=== PATIENT | male | born 1975 | race Hispanic/Latino ===

== ENCOUNTER 2022-11-23 16:29 | Emergency (ER) | payer OTHER, SELFPAY ==
--- NOTE | ~2022-11-23 | CT_ITS ---
EXAMINATION: CT brain wo con INDICATION: Headache COMPARISON: None TECHNIQUE: Standard unenhanced head CT. The dose-length product (DLP) was 605.33 mGy-cm. The mA was a djusted according to patient size. Iterative reconstruction technique was employed. FINDINGS: There is no intracranial hemorrhage, acute infarction, or abnormal mass lesion. The ventric les are normal. There is no abnormal mass effect or midline shift. The edward-white matter differentiat ion is normal. The basal cisterns are patent. The orbits are normal. There is mild mucosal thickening of the paranasal sinuses. IMPRESSION: 1. No acute intracranial abnormality. Reviewed, dictated and finalized at location F.
--- NOTE | ~2022-11-23 | CT_ITS ---
EXAMINATION: CT lumbar spine wo con DATE: 11/23/2022 17:53 INDICATION: Low back pain after fall TECHNIQUE: Computed tomography (CT) of the lumbar spine was performed without intravenous contrast. T he dose-length product (DLP) was 322.77 mGy-cm. Iterative reconstruction was used. COMPARISON: None FINDINGS: Bone alignment is normal. There is no fracture. There is mild loss of intervertebral disc s pace height at L4-5. Small degenerative osteophytes project from the anterior endplates of multiple v ertebral bodies. The vertebral body heights are normal. The prevertebral soft tissues are unremarkabl e. There is a 2 mm nonobstructing stone of the left kidney. IMPRESSION: 1. Mild lumbar spondylosis without acute findings. Reviewed, dictated and finalized at location F.
--- NOTE | ~2022-11-23 | CT_ITS ---
EXAMINATION: CT cervical spine wo con DATE: 11/23/2022 17:49 INDICATION: Neck pain TECHNIQUE: Computed tomography (CT) of the cervical spine was performed without intravenous contrast. The dose-length product (DLP) was 370.13 mGy-cm. Automated exposure control and iterative reconstruc tion technique were employed. COMPARISON: None FINDINGS: Bone alignment is normal. There is no fracture. The vertebral body heights an intervertebra l disc spaces are maintained. The odontoid process is intact. Are described spurs the prevertebral so ft tissues are normal. IMPRESSION: 1. Mild cervical spondylosis without acute findings. Reviewed, dictated and finalized at location F.
[2022-11-23 16:35] VITALS: BP 141/83; PULSE 70; RESP 18; TEMP 36.8; O2SAT 98
--- NOTE | 2022-11-23 18:34 | ED.NECK ---
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 Reports he slipped and fell onto his back. Reports hitting his head. He did not lose consciousness. Reports since he has had headaches and neck pain. Also reports low back pain. Denies visual changes, vomiting, numbness, or weakness. He is not on any anticoagulation. Related Data Allergies Allergy/AdvReac Type Severity Reaction Status Date / Time diflorasone Allergy Unknown Verified 11/23/22 16:42 Review of Systems Review of Systems: CONSTITUTIONAL: Denies fever EYES: Denies visual changes GASTROINTESTINAL: Denies vomiting MUSCULOSKELETAL: Reports back pain, joint pain, and myalgia. NEUROLOGIC: Reports headache. Denies numbness, or weakness. All systems reviewed & are unremarkable except as noted in HPI and below PMFSH Past Medical History Medical History (Updated 11/23/22 @ 18:48 by Charla Espinal PA-C) No active medical problems Social History Social History (Updated 11/23/22 @ 18:39 by Charla Espinal PA-C) Substance use: never Exam Narrative: GENERAL: Well-appearing, well-nourished, and in no acute distress. HEAD: Normocephalic, atraumatic. EYES: PERRLA and EOMI. ENT: Nares clear, no rhinorrhea or epistaxis. Mucous membranes moist. Oropharynx without tonsillar hypertrophy exudate or other lesions. Bilateral TMs pearly edward non-bulging NECK: Supple. No adenopathy or masses. Tender to palpation of midline cervical spine CHEST: Clear to auscultation. No respiratory distress. No wheezes rales or rhonchi HEART: Regular rate and rhythm. No murmur heard. Normal peripheral pulses. BACK: No midline thoracic spine tenderness. Tender palpation of midline lumbar spine EXTREMITIES: Normal range of motion. No edema. Strength equal in bilateral upper and lower extremities (5/5) SKIN: Warm, dry, no rash. NEURO: No focal deficits. Alert and oriented x3. Cranial nerves II through XII grossly intact PSYCH: Normal mood and affect Course Course Emergency Course: Patient was updated on work-up and agrees with plan of care Vital Signs Vital signs: Vital Signs Temperature 98.3 F 11/23/22 16:35 Pulse Rate 70 11/23/22 16:35 Respiratory Rate 18 11/23/22 16:35 Blood Pressure 141/83 H 11/23/22 16:35 Pulse Oximetry 98 11/23/22 16:35 Oxygen Delivery Room Air 11/23/22 16:35 Temperature 98.3 F 11/23/22 16:35 Pulse Rate 70 11/23/22 16:35 Respiratory Rate 18 11/23/22 16:35 Blood Pressure 141/83 H 11/23/22 16:35 Pulse Oximetry 98 11/23/22 16:35 Oxygen Delivery Room Air 11/23/22 16:35 MDM - Neck Pain/Injury MDM Narrative Medical decision making narrative: Patient presents to the emergency department after head injury a couple weeks prior with headache, neck pain, and low back pain. Patient is neurologically intact. CT scans of the brain, cervical spine, lumbar spine without acute findings. Patient was instructed on further care of muscle strain. He is to follow-up with primary provider. He was given warnings to return to the ER Differential Diagnosis Differential diagnosis: Likely cervical radiculopathy, strain of neck muscle and other (Concussion, intracranial hemorrhage, lumbar strain, compression fracture) Imaging Data Radiologist's impression: ITS Impressions Head CT 11/23/22 17:58 IMPRESSION: 1. No acute intracranial abnormality. Cervical Spine CT 11/23/22 18:11 IMPRESSION: 1. Mild cervical spondylosis without acute findings. Lumbar Spine CT 11/23/22 18:15 IMPRESSION: 1. Mild lumbar spondylosis without acute findings. Critical Care Time Cr
== END 2022-11-23 19:04 | disposition home or self-care (01) ==
PROVIDERS: Emergency Provider Physician Assistant
DX: S09.90XA Unspecified injury of head, initial encounter (principal); S16.1XXA Strain of muscle, fascia and tendon at neck level, initial encounter; M47.812 Spondylosis without myelopathy or radiculopathy, cervical region; M47.816 Spondylosis without myelopathy or radiculopathy, lumbar region; W01.0XXA Fall on same level from slipping, tripping and stumbling without subsequent striking against object, initial encounter
CPT/HCPCS: 70450; 72125; 72131; 99284